=== PATIENT | female | born 1955 | race Caucasian/White ===

== ENCOUNTER → 2018-03-20 | Outpatient (CLI) | payer OTHER ==
[~2018-03-20] MED LIST: BUPXL150 PO; BUSP15TA PO; CALC500T42 PO; FISH OIL1 CAP PO; IBU200 PO; METO-259 PO; MULT-820 PO
--- NOTE | 2018-03-20 14:43 | RADIOLOGY IMAGING REPORT ---
FACILITY: [facility] [place] PATIENT NAME: Josselyn Nunez : 1955 MR: [id number] V: [id number] EXAM DATE: ORDERING PHYSICIAN: DALLAS ETIENNE TECHNOLOGIST: Location: [facility] Patient: Josselyn Nunez : 1955 Visit/Account:[id number] Date of Sevice: 03/20/[address] scan without contrast HISTORY: Dizziness, headache, blurry vision left eye COMPARISONS: None TECHNIQUE: Non-contrast head CT was performed with sagittal and coronal reformations. One of the following dose optimization techniques was utilized in the performance of this exam: autom ated exposure control; adjustment of the mA and/or kV according to patient size; or use of iterative reconstruction technique. Specific details can be referenced in the facility's radiology CT exam ope rational policy. FINDINGS: There is no intracranial hemorrhage, hydrocephalus or midline shift. The basal cisterns, lyles-white differentiation, and convexity sulci are maintained. Normal orbital soft tissues. Mild patchy white m atter hypoattenuation. Internal carotid artery and left vertebral artery atherosclerotic calcificatio n noted. The mastoid air cells are clear. The paranasal sinuses are clear. The osseous structures are normal . IMPRESSION: No acute intracranial abnormality. Mild chronic small vessel ischemic change. Report Dictated By: Oli Alfonso MD at 03/20/2018 2:35 PM Report E-Signed By: Oli Alfonso MD at 03/20/2018 2:38 PM WSN:[id number]
== END ==
LOC: CT 07:03
PROVIDERS: ATTEND Family Medicine
DX: R42 Dizziness and giddiness (principal); R51 Headache; H53.8 Other visual disturbances
CPT/HCPCS: 70450

== ENCOUNTER → 2018-04-11 | Outpatient (CLI) | payer OTHER ==
--- NOTE | 2018-04-12 17:14 | RADIOLOGY IMAGING REPORT ---
FACILITY: [facility] PATIENT NAME: HAKEEM MILLS : [id number] MR: [id number] V: [id number] EXAM DATE: ORDERING PHYSICIAN: DALLAS ETIENNE TECHNOLOGIST: Rosario Tang PROCEDURE:BILATERAL DIGITAL SCREENING MAMMOGRAM WITH CAD ASSISTED INTERPRETATION & 3D TOMOSYNTHESIS COMPARISON:Prior mammograms 03/15/17, 04/28/15, 08/10/12. INDICATIONS:SCREENING FINDINGS: The breasts are extremely dense which lowers the sensitivity of mammography. The parenchymal pattern has remained grossly stable allowing for difference in mammographic technique & patient positioning. DIAGNOSTIC CATEGORY 1--NEGATIVE. RECOMMENDATIONS: ROUTINE MAMMOGRAM AND CLINICAL EVALUATION. IMPRESSION: BIRADS 1: Negative. No significant abnormality is seen. Dictated by: Nena Morales M.D. on 04/11/2018 at 16:40 Transcribed by: [email or web address] on 04/12/2018 at 8:11 Approved by: Nena Morales M.D. on 04/12/2018 at 17:13 [facility]
== END ==
LOC: MAMO 01:15
PROVIDERS: ATTEND Family Medicine
DX: Z12.31 Encounter for screening mammogram for malignant neoplasm of breast (principal)
CPT/HCPCS: 77063; 77067